=== PATIENT | male | born 1995 | race Caucasian/White ===

== ENCOUNTER 2018-06-30 09:36 | Emergency (ER) | payer OTHER ==
[2018-06-30] MEDS ORDERED: IBUPROFEN 800 MG TABLET PO ONE (10:49)
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
[2018-06-30 12:19] VITALS: BP 119/81
== END 2018-06-30 12:18 | disposition home or self-care (01) ==
LOC: ER 09:36
DX: M25.512 Pain in left shoulder (principal); F17.210 Nicotine dependence, cigarettes, uncomplicated
CPT/HCPCS: 99283